=== PATIENT | male | born 1960 | race Caucasian/White ===

== ENCOUNTER 2021-09-15 09:23 | Outpatient (CLI) | payer OTHER, SELFPAY ==
[2021-09-15 11:04] LABS: SARS-CoV-2 Ag Negative (Negative)
== END 2021-09-15 09:24 | disposition home or self-care (01) ==
LOC: CHSLAB 09:25
PROVIDERS: PCP Internal Medicine; Visit Provider Internal Medicine
DX: Z20.822 Contact with and (suspected) exposure to COVID-19 (principal)
CPT/HCPCS: 87426; C9803

== ENCOUNTER 2022-01-13 07:48 | Outpatient (CLI) | payer OTHER, SELFPAY ==
--- NOTE | ~2022-01-13 | US_ITS ---
US right upper quadrant INDICATION: Right upper quadrant pain PROCEDURE: Realtime right upper abdominal ultrasound. COMPARISON: Ultrasound dated 10/13/2012 FINDINGS: The pancreas is normal without focal mass or pancreatic ductal dilation. Liver echotexture is increased, consistent with fatty infiltration. There is normal directional flow in the portal ve in. The gallbladder is normal without stones, gallbladder wall thickening or pericholecystic fluid. Comm on bile duct measures 3 mm. No sonographic Christopher's sign. IMPRESSION: 1: Hepatic steatosis. Reviewed, dictated and finalized at location A. IMPRESSION: 1: Hepatic steatosis.
== END 2022-01-13 07:49 | disposition home or self-care (01) ==
LOC: CHSIMG 07:52
PROVIDERS: PCP Internal Medicine; Visit Provider Internal Medicine
DX: R10.11 Right upper quadrant pain (principal)
CPT/HCPCS: 76705

== ENCOUNTER 2023-02-26 07:14 | Outpatient (CLI) | payer OTHER, SELFPAY ==
--- NOTE | ~2023-02-26 | CT_ITS ---
CT of the Abdomen and Pelvis: Indication: Abdominal pain Technique: 2.5 mm axial scans were obtained through the abdomen and pelvis following intravenous adm inistration of 100 cc of Omnipaque 350. Dose reduction technique was used on this scan by utilizing a utomated exposure control and iterative reconstruction technique. The dose-length product (DLP) was 4 93.78 mGy-cm. Findings: Scans through the lung bases are unremarkable. The liver, pancreas, gallbladder, and kidneys are within normal limits. There are 1.3 cm nodules in t he right and left adrenal glands. Mild splenomegaly present. No evidence of aortic aneurysm. No lymp hadenopathy. No bowel obstruction or bowel wall thickening. There is no evidence to suggest acute appendicitis. Images through the pelvis were performed. Urinary bladder unremarkable. Prostate gland and seminal ve sicles are unremarkable. No ascites. No ascites. Impression: Mild splenomegaly. Bilateral 1.3 cm adrenal nodules. These are indeterminate based on Hounsfield units on this exam. Con bmet follow-up noncontrast exam or MR to further evaluate for adenomas versus other lesions. Reviewed, dictated and finalized at [facility]. Impression: Mild splenomegaly. Bilateral 1.3 cm adrenal nodules. These are indeterminate based on Hounsfield u nits on this exam. Consider follow-up noncontrast exam or MR to further evaluat e for adenomas versus other lesions.
[2023-02-26 07:43] LABS: Estimated Glomerular Filt Rate > 60
== END 2023-02-26 07:15 | disposition home or self-care (01) ==
LOC: CHSIMG 07:16
PROVIDERS: PCP Internal Medicine; Visit Provider Internal Medicine
DX: R10.9 Unspecified abdominal pain (principal); R16.1 Splenomegaly, not elsewhere classified; E27.8 Other specified disorders of adrenal gland
CPT/HCPCS: 74177; Q9967

== ENCOUNTER 2023-04-03 01:30 | Day surgery (SDC) | payer OTHER, SELFPAY ==
[2023-03-24 15:22] VITALS: BMI 24.5
[2023-04-03 08:40] VITALS: BP 123/93; PULSE 75; RESP 18; TEMP 36.2; O2SAT 100; BMI 23.9
[2023-04-03] MEDS: LACTATED RINGERS 1,000 ML 150 ML IV CONT (09:01)
--- NOTE | 2023-04-03 09:13 | P.HP_ITS ---
History of Present Illness History of Present Illness Consent: Risks, benefits, and alternatives have been discussed and questions answered. Patient agrees to proceed with procedure. Chief complaint: abdominal pain, nausea Narrative: Radhames Swann is a 62 year old male Referred for both colonoscopy and EGD. Patient complains of a rather vague diffuse abdominal pain associated with nausea. He states it is more a discomfort than a pain. He feels his abdomen is sore . It is not located to anyone area rather is diffuse throughout the abdomen. Patient states that is not related to eating. It is not related to bowel habits. Patient reports bowel habits are normal. Patient has a distant history of esophageal web I EGD in 2016. Suggest possible underlying acid reflux. He denies ever being told he had ulcers. He was identified as having a benign hyperplastic colon polyp 2016. Patient referred today for further evaluation and therapy by colonoscopy an EGD. He reports he had a CT scan that was normal . This is not available for review. Family history is noncontributory. Review of Systems Review of Systems: Review of systems noncontributory. [facility]LY [facility] Social History Social History Smoking status: Former smoker Tobacco type: cigarettes Alcohol intake: current Drinks per week: 10 Alcohol use details: beer Substance use type: does not use Living arrangements: with family Spiritual care concerns: No Meds Home Medications and Allergies Home Medications Medication Instructions Recorded Confirmed Type multivitamin with minerals-folic 1 tablet PO DAILY 03/24/23 04/03/23 History acid 0.4 mg tablet pantoprazole 40 mg tablet,delayed 40 mg PO DAILY 03/24/23 04/03/23 History release venlafaxine 75 mg capsule,extended 75 mg PO DAILY 03/24/23 04/03/23 History release 24 hr Allergies Allergy/AdvReac Type Severity Reaction Status Date / Time No Known Allergies Allergy Verified 04/03/23 08:46 Vital Signs Vital Signs - 24 hr 04/03/23 08:40 Temperature 97.1 F L Pulse Rate 75 Respiratory Rate 18 Blood Pressure 123/93 H Pulse Oximetry 100 Oxygen Delivery Room Air Exam Narrative: Physical exam reveals patient to be alert. Vital signs stable. HEENT exam is unremarkable. Patient is anicteric. Lungs are clear to auscultation and percussion. Heart is without murmur or extra sounds. Abdomen bowel sounds are present soft nontender with no organomegaly. Digital external rectal exam normal. Assessment and Plan Assessment and plan (1) Abdominal pain: Code(s): R10.9 - Unspecified abdominal pain Status: Acute Assessment and Plan: Patient reports rather vague diffuse abdominal discomfort described as nausea and a soreness . Plan for colonoscopy an EGD as requested. (2) Nausea: Code(s): R11.0 - Nausea Status: Acute Assessment and Plan: Patient reports nausea but no vomiting. EGD will be performed.
--- NOTE | 2023-04-03 09:47 | WPDANESEPPF ---
Anes - Initial Pre Proc Eval Procedure: Operation Date: 04/03/23 10:15 Proposed Procedures p Esophagogastroduodenoscopy & Colonoscopy - Dionicio Mccracken MD Date/Time: 04/03/23 09:47 Surgeon: Dionicio Mccracken MD Pre Op Diagnosis: abdominal pain, nausea Patient Data Age: 62 Gender: M Height: 1.78 m Weight: 75.6 kg Last Vital Signs Temp 97.1 F L 04/03/23 08:40 Pulse 75 04/03/23 08:40 Resp 18 04/03/23 08:40 BP 123/93 H 04/03/23 08:40 Pulse Ox 100 04/03/23 08:40 O2 Del Method Room Air 04/03/23 08:40 Allergies Allergy/AdvReac Type Severity Reaction Status Date / Time No Known Allergies Allergy Verified 04/03/23 08:46 Home Medications Medication Instructions Recorded Confirmed Type multivitamin with minerals-folic 1 tablet PO DAILY 03/24/23 04/03/23 History acid 0.4 mg tablet pantoprazole 40 mg tablet,delayed 40 mg PO DAILY 03/24/23 04/03/23 History release venlafaxine 75 mg capsule,extended 75 mg PO DAILY 03/24/23 04/03/23 History release 24 hr Patient hx anesthesia problems: none Family hx anesthesia problems: none Results Review: All pre-operative results and documents have been reviewed as part of the pre-operative evaluation. [facility]LY [facility] Social History Social History Smoking status: Former smoker Tobacco type: cigarettes Alcohol intake: current Drinks per week: 10 Alcohol use details: beer Substance use type: does not use Living arrangements: with family Spiritual care concerns: No Anes - Eval Final PreProcedure Day of Procedure 04/03/23 09:47 Patient weight: normal Heart: regular rate and rhythm Lungs: clear to auscultation Airway: Mallampati scale class II Neurological: alert and oriented Last oral intake: >/= 8 hours ASA classification: II Emergent: no Anesthetic plan: proceed Anesthesia type and monitoring: general GIVS and standard monitoring Results Review: All pre-operative results and documents have been reviewed as part of the pre-operative evaluation. Informed Consent: The patient's anesthetic plan and its attendant risks and benefits were discussed with the patient/family/POA. Questions were solicited and answers provided to the satisfaction of the patient/family/POA.
--- NOTE | 2023-04-03 09:53 | SUR.OPER ---
EGD start 953 end 955, Colonoscopy start 999
[2023-04-03] MEDS: SIMETHICONE ORAL SUSPENSION 20 MG/0.3 ML 30 ML BOTTLE 0.6 ML IRRIGATION (10:06)
[2023-04-03 10:23] VITALS: BP 104/70; PULSE 65; RESP 13; O2SAT 98
[2023-04-03 10:33] VITALS: BP 122/83; PULSE 61; RESP 20; O2SAT 100
[2023-04-03 10:43] VITALS: BP 143/88; PULSE 65; RESP 24; O2SAT 100
== END 2023-04-03 10:52 | disposition home or self-care (01) ==
PROVIDERS: PCP Internal Medicine; Visit Provider Internal Medicine Gastroenterology
PROC: 0DJ08ZZ Inspection of Upper Intestinal Tract, Via Natural or Artificial Opening Endoscopic (ICD-10-PCS; CPT 43235; principal; 2023-04-03 10:15)
DX: R10.84 Generalized abdominal pain (principal); K64.8 Other hemorrhoids; K57.30 Diverticulosis of large intestine without perforation or abscess without bleeding; D12.2 Benign neoplasm of ascending colon; D12.5 Benign neoplasm of sigmoid colon; K63.5 Polyp of colon; R11.0 Nausea; K44.9 Diaphragmatic hernia without obstruction or gangrene; Z87.891 Personal history of nicotine dependence
CPT/HCPCS: 45385; 43239; 87081; 88305; J2704; J7120

== ENCOUNTER 2023-04-10 14:25 | Outpatient (CLI) | payer OTHER, SELFPAY ==
--- NOTE | ~2023-04-10 | MR_ITS ---
EXAMINATION: MR abdomen wo/w con INDICATION: Bilateral adrenal masses TECHNIQUE: Coronal SSFSE ARC, WATER:coronal LAVA-FLEX, Coronal 2D FIESTA FatSat, Axial SSFSE BH ARC, Axial 3D DualEcho BH, Axial SSFSE-IR, Axial DWI b=500, Axial 2D FIESTA FatSat, pre and dynamic postco ntrast Axial LAVA ARC, postcontrast Coronal In and Opposed phase LAVA FLEX COMPARISON: CT, 02/26/2023 CONTRAST: Multihance, 15 cc FINDINGS: There are bilateral adrenal masses measuring 1.3 cm which demonstrate loss of signal intens ity on opposed phase imaging, consistent with adenomas. No suspicious adrenal mass is identified. The liver is unremarkable. There is a 3 mm cyst of the spleen. The gallbladder is normal. There is a 9 m m cystic lesion in the body of the pancreas. There is a 5 mm cyst of the left kidney lower pole. The right kidney is unremarkable. There are no pathologically enlarged abdominal lymph nodes. No dilated loops of bowel are evident. IMPRESSION: 1. Bilateral adrenal masses, consistent with adenomas. 2. 9 mm cystic lesion of the pancreas. The differential diagnosis includes pseudocyst, intraductal pa pillary mucinous neoplasm (IPMN), mucinous cystic neoplasm (MCN), and the less common serous cystaden talisha and neuroendocrine tumor. Correlate for history of pancreatitis. Follow-up pancreas protocol CT o r MRI in 12 months is recommended. Reviewed, dictated and finalized at location B. IMPRESSION: 1. Bilateral adrenal masses, consistent with adenomas. 2. 9 mm cystic lesion of the pancreas. The differential diagnosis includes pseu docyst, intraductal papillary mucinous neoplasm (IPMN), mucinous cystic neoplas m (MCN), and the less common serous cystadenoma and neuroendocrine tumor. Corre late for history of pancreatitis. Follow-up pancreas protocol CT or MRI in 12 m onths is recommended.
== END 2023-04-10 14:26 ==
LOC: MICIMG 14:26
PROVIDERS: PCP Internal Medicine
DX: E27.8 Other specified disorders of adrenal gland (principal); D35.01 Benign neoplasm of right adrenal gland; D35.02 Benign neoplasm of left adrenal gland
CPT/HCPCS: 74183; A9577

== ENCOUNTER 2024-08-10 13:33 | Outpatient (CLI) | payer OTHER, SELFPAY ==
--- NOTE | ~2024-08-10 | MR_ITS ---
EXAMINATION: MR abdomen wo/w con DATE: 08/10/2024 15:10 INDICATION: Pancreatic cyst. TECHNIQUE: Magnetic resonance imaging (MRI) of the abdomen was performed without and with 16 mL Multi Hai intravenous contrast. COMPARISON: Abdomen MRI 04/10/2023 FINDINGS: The liver and gallbladder are normal. There is a 7 mm cyst in the spleen. There is a 10 mm cyst in th e pancreas. The pancreatic duct is normal in caliber. There are masses in the adrenal glands measurin g up to 13 mm on the right containing microscopic fat, consistent with adenomas. Right kidney is norm al. There is an 8 mm cyst in left kidney. There is a small sliding hiatal hernia. IMPRESSION: 1. Stable 10 mm cyst in the pancreas. The differential diagnosis includes pseudocyst, intraductal pap illary mucinous neoplasm (IPMN), mucinous cystic neoplasm (MCN), serous cystadenoma, and neuroendocri ne tumor. Abdomen MRI without and with contrast is recommended in one year. 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 Stable 10 mm cyst in the pancreas. The differential diagnosis includes pseud ocyst, intraductal papillary mucinous neoplasm (IPMN), mucinous cystic neoplasm (MCN), serous cystadenoma, and neuroendocrine tumor. Abdomen MRI without and w ith contrast is recommended in one year.
== END 2024-08-10 13:34 | disposition home or self-care (01) ==
PROVIDERS: PCP Internal Medicine; Visit Provider Nurse Practitioner Family
DX: K86.2 Cyst of pancreas (principal)
CPT/HCPCS: 74183; A9577

== ENCOUNTER 2025-08-16 09:32 | Emergency (ER) | payer OTHER, SELFPAY ==
[2025-08-16 09:42] VITALS: BP 151/86; PULSE 68; RESP 16; TEMP 36; O2SAT 99
--- NOTE | 2025-08-16 09:53 | ED.DENTAL ---
HPI - Dental/Oral General Chief complaint: Dental/Oral Stated complaint: Toothache Source: patient Mode of arrival: ambulatory History of Present Illness HPI Narrative: 65-year-old male presented for complaint of right lower dental pain. Onset 1 week. Has been taking Augmentin x4 days. Says Tylenol and ibuprofen are not helping. He has an appointment with dentist scheduled in 1 week. Says he is concerned the infection is not improving. Denies Swelling to the face or gumline, nausea vomiting, fevers, or difficulty swallowing. MD Complaint: tooth pain Related Data Home Medications ?Medication ?Instructions ?Recorded ?Confirmed ?Last Taken ?Type multivitamin with minerals-folic 1 tablet PO DAILY 03/24/23 08/16/25 Unknown History acid 0.4 mg tablet pantoprazole 40 mg tablet,delayed 40 mg PO DAILY 03/24/23 08/16/25 Unknown History release venlafaxine 75 mg capsule,extended 75 mg PO DAILY 03/24/23 08/16/25 Unknown History release 24 hr Allergies Allergy/AdvReac Type Severity Reaction Status Date / Time No Known Allergies Allergy Verified 08/16/25 09:42 Review of Systems Review of Systems: CONSTITUTIONAL: Denies body aches, fever, chills ENT: Denies rhinorrhea, congestion, sore throat, or otalgia. Reports dental pain CARDIOVASCULAR: Denies chest pain, palpitations RESPIRATORY: Denies cough or dyspnea. SKIN: Denies rash, itching, or wounds. MUSCULOSKELETAL: Denies myalgia. NEUROLOGIC: Denies headache, numbness, tingling, or weakness. [facility] Social History Social History Smoking status: Former smoker Tobacco type: cigarettes Alcohol intake: current Drinks per week: 10 Alcohol use details: beer Substance use type: does not use Living arrangements: with family Spiritual care concerns: No Comments At time of signature, I have reviewed and agree with nursing past medical, surgical, social and family history unless otherwise noted. Please see nursing chart for further information. There is no relevant family history pertinent to the presenting complaint Exam Narrative: GENERAL: Appears in pain; no acute distress. HEAD: Normocephalic, atraumatic. EYES: EOMI. No redness or drainage. Conjunctivae normal. ENT: Dental pain location of ##28, crown in place, no swelling noted no drainage noted. Mucous membranes pink and moist. TMs normal bilaterally. Throat normal. Uvula midline. NECK: Normal AROM. No lymphadenopathy. CHEST: No respiratory distress. Clear to auscultation. HEART: Regular rate and rhythm. No murmur appreciated. SKIN: Warm, dry, no rash. Normal skin turgor. NEURO: No focal deficits. Alert and oriented x3. Gait steady. Course Course Level of Care: Express Care Visit Vital Signs Vital signs: Vital Signs Temperature 96.8 F L 08/16/25 09:42 Pulse Rate 68 08/16/25 09:42 Respiratory Rate 16 08/16/25 09:42 Blood Pressure 151/86 H 08/16/25 09:42 Pulse Oximetry 99 08/16/25 09:42 Temperature 96.8 F L 08/16/25 09:42 Pulse Rate 68 08/16/25 09:42 Respiratory Rate 16 08/16/25 09:42 Blood Pressure 151/86 H 08/16/25 09:42 Pulse Oximetry 99 08/16/25 09:42 MDM MDM Narrative Medical decision making narrative: Discussed physical exam findings; no significant swelling or apparent abscess. He will continue abx as previously prescribed, RX lidocaine and ibuprofen. scheduled with dentist in 1 week. Advised supportive measures and signs/symptoms to go to the ER. Pt is appropriate for outpt treatment and f/u. Differential Diagnosis Differential Diagnosis: dentalgia, dental abscess, gingivostomatitis, dental caries Discharge Plan Discharge Clinical Impression: Toothache Patient Disposition: Home Condition: Stable Instructions: Antibiotic Form, Toothache (ED) Additional Instructions: Take antibiotic as directed May apply heat or ice to the face Gentle brushing and flossing. Rinse mouth with warm salt water at least 2 times a day. Alternate Tylenol and ibuprofen as needed for pain Follow-up with the dentist as scheduled. go to the ER for worsening symptoms or concerns Patient Language: Polish Prescriptions: New ibuprofen 800 mg tablet 800 mg PO TID PRN (Reason: pain) Qty: 15 0RF lidocaine HCl [Lidocaine Viscous] 2 % solution 1 applic mucous membrane TID PRN (Reason: pain) Qty: 100 0RF Rx Instructions: apply with cotton swab to site of pain No Action venlafaxine 75 mg capsule,extended release 24hr 75 mg PO DAILY pantoprazole 40 mg tablet,delayed release (DR/EC) 40 mg PO DAILY multivit with min-folic acid [Adult One Daily Multivitamin] 0.4 mg Tablet 1 tablet PO DAILY Follow-up/Referrals: PHYSICIAN,RESEARCH FELLOW [Primary Care Provider, Internal Medicine] Time of Disposition: 10:01
== END 2025-08-16 10:09 | disposition home or self-care (01) ==
PROVIDERS: Emergency Provider Nurse Practitioner Family
DX: K08.89 Other specified disorders of teeth and supporting structures (principal); K21.9 Gastro-esophageal reflux disease without esophagitis; Z87.891 Personal history of nicotine dependence
CPT/HCPCS: 99213; G0463